=== PATIENT | female | born 2000 | race Caucasian/White ===

== ENCOUNTER 2025-08-20 15:55 | Emergency (ER) | payer OTHER, SELFPAY ==
--- NOTE | 2025-08-20 | ECG_ITS ---
Test Reason : CHEST PAIN Blood Pressure : */* mmHG Vent. Rate : 87 BPM Atrial Rate : 87 BPM P-R Int : 132 ms QRS Dur : 88 ms QT Int : 358 ms P-R-T Axes : 32 39 22 degrees QTcB Int : 430 ms Normal sinus rhythm Cannot rule out Anterior infarct , age undetermined Abnormal ECG No previous ECGs available Referred By: Generic ED Physician Electronically Signed By: MARIA M SEPULVEDA MD
--- NOTE | ~2025-08-20 | XR_ITS ---
CLINICAL HISTORY: chest pain 2 view chest x-ray Comparison: None provided Findings: No consolidation or effusion. Normal size heart. No acute fracture. IMPRESSION: 1. No acute findings. This document has been electronically signed by: Derek Wells MD on 08/20/2025 18:40:40
[2025-08-20 16:11] VITALS: BP 121/58; PULSE 81; RESP 18; TEMP 36.3; O2SAT 97; BMI 33.7
[2025-08-20 16:29] LABS: MANUAL DIFF FLAG NO
[2025-08-20 16:30] VITALS: PULSE 84; RESP 18
[2025-08-20 16:33] LABS: Hematocrit 40.4 % (37.0-47.0); Hemoglobin 13.1 g/dl (12.0-16.0); Imm Gran Abs Auto 0.04 X10*3/uL (0.00-0.03); Imm Gran Pct Auto 0.3 % (0.0-0.4); Lymphocytes Absolute Auto 2.7 X10*3/uL (1.2-4.9); Mean Corpuscular HGB Conc 32.4 g/dl (31.0-35.0); Mean Corpuscular Hemoglobin 26.3 pg (27.0-33.0); Mean Corpuscular Volume 81.0 fL (80.0-98.0); NRBC Abs Auto 0.000 X10*3/uL (0.0-0.012); NRBC Pct Auto 0.0 /100WBC (0.0-0.2); Platelet Count 338 X10*3/uL (160-400); Red Blood Count 4.99 X10*6/uL (4.20-5.50); White Blood Count 13.0 X10*3/uL (4.8-10.8)
--- NOTE | 2025-08-20 16:40 | ED_ITS ---
HPI - Chest Pain General Chief Complaint: Chest Pain Stated Complaint: chest pain Time Seen by Provider: 08/20/25 16:39 Source: patient and family (patient's ) Mode of arrival: ambulatory Limitations: no limitations History of Present Illness ED Provider: Loren Chavira PA-C HPI narrative: Patient is a 25 year old assigned female at with a history of asthma and palpitations presenting to the emergency department today with continued palpitations. Patient states that she has been evaluated for these palpitations and intermittent chest tightness for which she had a 3 day holter monitor that showed no acute process. Patient states that the palpitations continue. Patient states that she has not seen a parachute repairer. Patient denies any other complaints at this time. Related Data Allergies Allergy/AdvReac Type Severity Reaction Status Date / Time No Known Allergies Allergy Verified 08/20/25 16:15 Review of Systems 2 Constitutional: Constitutional: Reports as per HPI Eyes: Eyes: Reports as per HPI ENT: Reports as per HPI Cardiovascular: Cardiovascular: Reports as per HPI Respiratory: Respiratory: Reports as per HPI Gastrointestinal: Gastrointestinal: Reports as per HPI Genitourinary: Genitourinary: Reports as per HPI Musculoskeletal: Musculoskeletal: Reports as per HPI Integumentary/Breasts: Skin/Breast: Reports as per HPI Neurologic: Reports as per HPI Psychiatric: Psychiatric: Reports as per HPI Endocrine: Endocrine: Reports as per HPI Hematologic/Lymphatic: Hematologic/Lymphatic: Reports as per HPI Allergic/Immunologic: Allergic/Immunologic: Reports as per HPI PMF Past Medical History Attestation statement: The following information was validated with the patient. (patient's validated all information) Source: old records reviewed, obtained from family (patient's provided additional history and confirmed the history provided by the patient. ) and nursing notes reviewed Social History Social History Smoked in Last 30 Days: No Use of substances other than those prescribed or required for medical reasons: No Advance Directives: No Advance Directives Information Provided: Yes Do you have a plan to hurt others: No Plan Physical Exam 2 Vital Signs: Vital Signs: Last Vital Signs Temp 98 F 08/20/25 18:55 Pulse 76 08/20/25 18:55 Resp 18 08/20/25 18:55 BP 133/70 10/11/25 18:55 Pulse Ox 98 08/20/25 18:55 O2 Del Method Room Air 08/20/25 18:55 BMI result Body Mass Index 33.7 Const: General: cooperative, no acute distress, alert and awake Nutritional Appearance: well nourished Orientation/consciousness: patient oriented x3 HEENT: Head: Yes normal to inspection and Yes atraumatic Ears: hearing grossly normal bilaterally and external ears normal General nose exam: Normal external nose present, no nasal discharge noted and no epistaxis Face and sinus: Yes normal facial exam, No abrasion and No laceration Mouth: Normal oral and palatal mucosa present, no drooling and no muffled voice Eyes: General: appearance normal, both eyes and all related structures P eriorbital: periorbital findings normal Eyelids: Yes eyelids normal C onjunctivae: conjunctivae normal Pupils: Equal, round and reactive pupils present EOM: EOMs intact bilaterally Neck: Neck: Yes normal visual inspection and Yes full ROM Resp: Effort & Inspection: normal respiratory effort and able to speak in complete sentences Neuro: General: patient oriented x3, moves all extremities and CN's II-XI intact bilaterally Cranial nerves: Yes Equal, round and reactive pupils present Cognition (Neuro): normal cognition Extrem: General: Yes normal to inspection, Yes full ROM and Yes capillary refill normal Psych: Appearance: grossly normal Mental Status: mental status grossly normal Affect: normal affect Attitude: cooperative Thought process: N ormal thought process present Thought content: Normal thought content present Insight: Good insight present (Psych) Medical Decision Making Medical Decision Making MDM Narrative: Patient is a 25 year old assigned female at with a history of asthma and palpitations presenting to the emergency department today with continued palpitations. Patient's physical exam was as noted in the physical exam portion of this note. Patient's blood work showed a WBC count of 13 but were otherwise unremarkable. Patient has no evidence of infectious process. Patient's EKG was unremarkable. Patient's chest x-ray showed no acute process. I explained my physical exam findings as well as all test results to the patient and the patient's . I answered all questions asked by the patient and the patient's . I discussed the possibility of starting the patient on a beta jorje to help with her palpitations but that it could potentially worsen her asthma. Together, through shared decision making, we determined the patient would wait to follow up with cardiology outpatient before deciding on medication management for palpitations. I stressed the importance of the patient taking her medication as directed (either prescribed or as the over the counter packaging recommends). I stressed the importance of the patient following up with her primary care provider and a parachute repairer. I stressed the importance of the patient returning to the emergency department immediately if her symptoms were to worsen or if she were to develop any dizziness, shortness of breath, difficulty breathing, chest pain, blurry vision, loss of vision, nausea, vomiting, abdominal pain, fever, chills, back pain, or any other complaints. Patient and the patient's verbalized agreement and understanding with this treatment plan and discharge. Differential Diagnosis Differential Diagnoses: The differential diagnosis associated with the presentation includes Atypical chest pain Palpitations Admission/Observation Consideration of admission/observation: Escalation of care including admission/observation considered Patient would have been admitted to the hospital had her work up had any findings where hospital admission was appropriate and her clinical presentation warranted hospital admission. Lab Data [facility] Lab Attestation statement: I reviewed the patient's lab results. My interpretation of these results are in the [facility] Rationale portion of this note. 08/20/25 16:22 08/20/25 16:22 Labs: Lab Results 08/20/25 Range/Units 16:22 WBC 13.0 H (4.8-10.8) X10*3/uL RBC 4.99 (4.20-5.50) X10*6/uL Hgb 13.1 (12.0-16.0) g/dl Hct 40.4 (37.0-47.0) % MCV 81.0 (80.0-98.0) fL MCH 26.3 L (27.0-33.0) pg MCHC 32.4 (31.0-35.0) g/dl RDW 14.3 (11.0-16.0) % Plt Count 338 (160-400) X10*3/uL MPV 9.1 L (9.4-12.3) fL Immature Gran % (Auto) 0.3 (0.0-0.4) % Neut % (Auto) 69.7 (45-73) % Lymph % (Auto) 20.8 (20-40) % [place] % (Auto) 6.9 (2-11) % Eos % (Auto) 1.8 (0-4) % Baso % (Auto) 0.5 (0-2) % Lymph # (Auto) 2.7 (1.2-4.9) X10*3/uL [place] # (Auto) 0.9 (0.1-1.2) X10*3/uL Eos # (Auto) 0.2 (0.0-0.4) X10*3/uL Baso # (Auto) 0.1 (0.0-0.2) X10*3/uL Abs Immat Gran (auto) 0.04 H (0.00-0.03) X10*3/uL Absolute Neuts (auto) 9.1 H (2.0-8.3) x10*3/uL Absolute Nucleated RBC 0.000 (0.0-0.012) X10*3/uL Nucleated RBC % (auto) 0.0 (0.0-0.2) /100WBC Sodium 141 (135-145) mmol/L Potassium 3.8 (3.3-5.1) mmol/L Chloride 107 (96-108) mmol/L Carbon Dioxide 27 (22-29) mmol/L Anion Gap 11 L (12-20) BUN 15 (9-16) mg/dL Creatinine 0.96 (0.5-1.4) mg/dL Estim Creat Clear Calc 104.8 Estimated GFR > 60 Random Glucose 89 (60-115) mg/dL Calcium 9.2 (8.4-10.2) mg/dL Magnesium 1.8 (1.6-2.6) mg/dL Total Bilirubin 0.2 (0.0-1.0) mg/dL AST 20 (5-31) U/L ALT 16 (0-31) U/L Alkaline Phosphatase 59 (39-117) U/L Troponin I High Sens < 2.7 (<3.5-17.0) ng/L Total Protein 7.0 (6.5-8.0) g/dL Albumin 4.1 (3.5-5.0) g/dL TSH 1.58 (0.32-4.0) uIU/mL Beta HCG, Quant < 2 mIU/mL Independent Interpretation I performed an independent interpretation of an: EKG and Plain X-Ray Interpretation: My interpretation is in agreement with the radiologist's impression of this imaging study. L Reason for Exam: chest pain CLINICAL HISTORY: chest pain 2 view chest x-ray Comparison: None provided Findings: No consolidation or effusion. Normal size heart. No acute fracture. IMPRESSION: 1. No acute findings. This document has been electronically signed by: Derek Wells MD on 08/20/2025 18:40:40 Dictated By: Derek Wells MD Signed By: Electronically signed by Derek Wells MD 08/20/25 1841 I independently interpreted this EKG and am in agreement with the below findings: Vent. Rate: 87 BPM Atrial Rate: 87 BPM P-R Int: 132 ms QRS Dur: 88 ms QT Int: 358 ms P-R-T Axes: 32 39 22 degrees QTcB Int: 430 ms Normal sinus rhythm No previous ECGs available DD/ 1602 Radiology Impression Discussion of test interpretation with radiology: I have reviewed the radiologist's reading. Independent Historian Clinical information obtained from an independent historian. History obtained from or confirmed by: Spouse (patient's provided additional history and confirmed the history provided by the patient. ) Discharge Plan Discharge Clinical Impression: Atypical chest pain, Palpitations Patient Disposition: Home, Self-Care Instructions: Chest Pain (DC), Heart Palpitations (DC) Additional Instructions: Your work up today was reassuring there is no EMERGENT cause for your symptoms. You should follow up with the cardiology team about an extended holter monitor and other testing modalities. IF you are prescribed home medications and/or you are taking over the counter medications at home - it is very important you continue to do so as prescribed / directed unless told otherwise. Follow up with your primary care provider. Return to the emergency department immediately if your symptoms worsen or if you develop any numbness, tingling, dizziness, shortness of breath, difficulty breathing, chest pain, blurry vision, loss of vision, nausea, vomiting, abdominal pain, fever, chills, back pain, or any other complaints. Please see the information below about our Patient Portal. If you are not yet enrolled in the [facility] Patient Portal, you will receive an enrollment email invitation following your visit to any [facility] setting. You may also self-enroll in the Patient Portal by visiting our website: [email or web address] The following information is required to access the Patient Portal: - Your [facility] Medical Record Number - Your personal home email address (must match what is in your electronic medical record, Registration staff can assist with this) - Name - Date of Capabilities of the Patient Portal: - Message some providers - View upcoming appointments - Access your health summary, medical history, and visit history - View current conditions and allergies - View procedure and lab results - View your medications, including guidelines, side effects, and precautions - Complete pre-appointment questionnaires requested by your provider - Ready summary reports of your office visits and procedures To access the Patient Portal Mobile [employer], follow these directions: - Search Scyron in the [employer] Store or [employer] Store - Download the Sharron - Search for [facility] - Enter your login/password Referrals: [facility] [Provider Group] Referral Note: Call to establish and follow up with the cardiology team. Interventions: ED Discharge Assessment Last Done: 08/20/25 18:55 Discharge Date/Time: 08/20/25 18:55 Print Language: Estonian
[2025-08-20 16:50] LABS: Alanine Aminotransferase 16 U/L (0-31); Albumin Level 4.1 g/dL (3.5-5.0); Alkaline Phosphatase 59 U/L (39-117); Anion Gap 11 (12-20); Aspartate Amino Transferase 20 U/L (5-31); Blood Urea Nitrogen 15 mg/dL (9-16); Calcium 9.2 mg/dL (8.4-10.2); Carbon Dioxide 27 mmol/L (22-29); Chloride 107 mmol/L (96-108); Creatinine Clr Calc Pharmacy 104.8; Estimated Glomerular Filt Rate > 60; Magnesium 1.8 mg/dL (1.6-2.6); Potassium 3.8 mmol/L (3.3-5.1); Sodium 141 mmol/L (135-145); Total Protein 7.0 g/dL (6.5-8.0)
[2025-08-20 16:51] LABS: Troponin-I High Sensitivity < 2.7 ng/L (<3.5-17.0)
--- OUTSIDE RECORDS SUMMARY | 2025-08-20 17:15 | XMS_ITS | Clinical Summary ---
Author Organization [facility] Facility Address [address] [place] [address] Care Team Providers Care Mmd Unit Teacher Name Role Phone Serenity Hadley MD Primary Care Provider Social History Tobacco Use Types Packs/Day Years Used Date Smoking Tobacco: Never Assessed Comments Unknown Sex and Gender Information Value Date Recorded Sex Assigned at Not on file Legal Sex Female 10:54 AM EDT Gender Identity Not on file Sexual Orientation Not on file Plan of Treatment Health Maintenance Due Date Last Done Comments Hepatitis B Vaccine (1 of 3 - 19+ 3-dose series) 04/08 Pneumococcal Vaccine: Peds ( 0 to 5 Years) and At-Risk Patients (6 to 49 Years) (1 of 2 - PCV) 2020 Influenza Vaccine (#1) [address] [place] [address] Member Subscriber Plan / Payer (Ef fective 2022-Present) Name:Ema Negrete Relation to Subscriber:Self Name:Ema Negrete Payer ID:Not on file Type:Not on file Address: [address] [phone] [place] [address] [place] Care Teams Mmd Unit Teacher Relationship Specialty Start Date End Date Serenity Hadley MD [facility] [address] [place], [place] PCP - General Internal Medicine 06/04/22
[2025-08-20 18:55] VITALS: BP 133/70; PULSE 76; RESP 18; TEMP 36.6; O2SAT 98
== END 2025-08-20 18:55 | disposition home or self-care (01) ==
PROVIDERS: Physician Assistant Medical; Emergency Provider Emergency Medicine
DX: R07.89 Other chest pain (principal); R00.2 Palpitations; R10.22 Pelvic and perineal pain left side; Z79.899 Other long term (current) drug therapy
CPT/HCPCS: 36415; 71046; 80053; 83735; 84443; 84484; 84702; 85025; 93005; 99283; 99285

== ENCOUNTER → 2025-08-20 16:02 | Outpatient (BNV) | payer OTHER, SELFPAY | PROVIDERS: Emergency Provider Emergency Medicine; Visit Provider Internal Medicine Cardiovascular Disease | DX: R94.31 Abnormal electrocardiogram [ECG] [EKG] (principal); R07.89 Other chest pain | CPT/HCPCS: 93010 ==

== ENCOUNTER → 2025-08-20 16:39 | Outpatient (BNV) | payer OTHER, SELFPAY | PROVIDERS: Emergency Provider Emergency Medicine; Visit Provider Radiology Diagnostic Radiology | DX: R07.9 Chest pain, unspecified (principal) | CPT/HCPCS: 71046 ==